=== PATIENT | female | born 1950 | race Caucasian/White ===

== ENCOUNTER 2022-02-19 05:43 | Outpatient (CLI) | payer MEDICARE ==
[~2022-02-19] VITALS: Ht 157.5 cm; Wt 32.5 kg
== END 2022-02-19 12:11 | disposition home or self-care (01) ==
LOC: PREOP 05:43
PROVIDERS: ATTEND Surgery
DX: Z01.818 Encounter for other preprocedural examination (principal)

== ENCOUNTER → 2022-02-19 | Outpatient (CLI) | payer MEDICARE ==
--- NOTE | 2022-02-19 11:21 | Diagnostic Imaging Report ---
KNEE, RIGHT, 4 VIEWS OR > INDICATION: Right knee pain COMPARISON: None available. TECHNIQUE: 4 views of the right knee FINDINGS: Joint spaces are preserved. No marginal osteophyte formation. Patella is appropriately positioned within the trochlear groove. No trochlear dysplasia. No fracture, knee joint effusion or mineralized joint bodies. Normal variant flabella is present. IMPRESSION: No osseous abnormality to account for patient's right knee pain. Dictated by: Dictated on workstation # [id number]
== END ==
LOC: ORTHO 08:35
PROVIDERS: ATTEND Orthopaedic Surgery
DX: M25.561 Pain in right knee (principal)
CPT/HCPCS: 73564; G0463; 99203

== ENCOUNTER 2022-02-26 07:48 | Day surgery (SDC) | payer MEDICARE ==
[~2022-02-26] VITALS: Ht 157.5 cm; Wt 32.5 kg
[2022-02-26] VITALS (9 sets, daily range): BP systolic 109–134; BP diastolic 52–85
--- NOTE | 2022-02-26 08:05 | Progress Note-Pre Operative ---
Pre-Operative Progress Note Date of Available H&P: Feb 11, 2022 Date H&P Reviewed: Feb 26, 2022 Time H&P Reviewed: 08:05 History & Physical: H&P Reviewed, Patient Examed, No changes noted Pre-Operative Diagnosis: subcutaneous abdominal wall mass HERON GERONIMO DO Feb 26, 2022 08:05
[2022-02-26] MEDS ORDERED: ceFAZolin INJECTION 2,000 MG in NS (IVPB) 50 ML IV ONE (08:15)
[2022-02-26] MEDS ORDERED: LACTATED RINGERS 1,000 ML IV PRN (08:15)
[2022-02-26] MEDS ORDERED: proPOfol 200 MG/20 ML (DIPRIVAN) VIAL IV ONE (09:21)
[2022-02-26] MEDS ORDERED: fentaNYL INJ 100 MCG/2 ML AMP ONE (09:22)
[2022-02-26] MEDS ORDERED: MIDAZOLAM 2 MG/2 ML (VERSED) VIAL ONE (09:22)
[2022-02-26] MEDS ORDERED: LIDOCAINE/EPI 2% 1:200,00 (XYLOCAINE) 20 ML VIAL ONE (09:53)
[2022-02-26] MEDS ORDERED: PHENYLEPHRINE 100 MCG/ML 10 ML (ANESTHESIA) SYR ONE (09:58)
[2022-02-26] MEDS ORDERED: SEVOFLURANE (ULTANE) 15 ML INHAL SOLN ONE (09:58)
[2022-02-26] MEDS ORDERED: ONDANSETRON 4 MG/2 ML (SDV) Z0FRAN ONE (09:58)
--- NOTE | 2022-02-26 10:20 | Discharge Inst-Simple/Standard ---
Discharge Inst-Standard Patient Instructions/Follow Up Plan of Care/Instructions/FU: 2 weeks Vonnie Activity as Tolerated: No Discharge Diet: Regular Diet Other Inst to Patient Follow up Appt: Make appointment for 2 week. Instructions: No strenuous activity. May shower in 24 hours, no tub bath or soaking. Use incentive spirometer at home as directed. No Smoking Skin/Wound Care: You have special glue over your incision that will fall off on it's own. Symptoms to Report: Appetite Changes, Extremity Discoloration, Numbness/Tingling, Swelling Increased, Bleeding Excessive, Eyesight Changes, Pain Increased, Urine Color Change, Constipation(Persistent), Fever over 101 degree F, Pain/Pressure in ches t, Urinating Difficulty, Cough Up/Vomit Blood, Heart Beat Irreg/Pounding, Pain/Pressure in jaw, Vaginal Bleeding Increase, Cramps in feet or legs, Lightheadedness, Pain/Pressure in shoulder, Diarrhea(Persistent), Memory Changes Suddenly, Questions/Concerns, Weight gain consecutive days, Dizziness/Fainting, Nausea/Vomiting, Shortness of Breath, Weight gain over 2 pounds If questions or concerns contact your physician Or seek help at emergency department. HERON GERONIMO DO Feb 26, 2022 10:19
--- NOTE | 2022-02-26 14:44 | OPERATIVE REPORT ---
DATE OF SERVICE: 02/26/2022 PREOPERATIVE DIAGNOSIS: Subcutaneous abdominal wall mass. POSTOPERATIVE DIAGNOSIS: Subcutaneous abdominal wall mass. PROCEDURE: Excision of subcutaneous abdominal wall mass, 6 x 3 x 2.3 cm. SURGEON: Heron Shankar DO ANESTHESIA: General. ESTIMATED BLOOD LOSS: Minimal. COMPLICATIONS: None. INDICATIONS: The patient is a 71-year-old female with abdominal wall mass, likely an infected cyst. She understands risks and benefits of procedure and wishes to proceed. Consent was signed in the chart. DESCRIPTION OF PROCEDURE: The patient was taken to the operating suite, prepped and draped in sterile fashion. Timeout was performed. Local anesthetic was infiltrated around the area. A 15 blade scalpel was used to make a skin incision measuring 6 x 3 cm. Skin and subcutaneous tissue were removed with cautery achieving hemostasis. Overall, dimensions 6 x 3 x 2.3 cm. Hemostasis was achieved. Subcutaneous tissues were then reapproximated using 3-0 Vicryl. Skin was then closed with Skin Affix after it was washed and dried. The patient tolerated the procedure well without any complications. She was taken to recovery room in stable condition. She will follow up in 2 weeks. Any issues before that be seen at that time. Job ID: [id number] DocumentID: [id number] Dictated Date: 02/26/2022 10:25:28 Customer Operations Representative Date: 02/26/2022 14:43:48 Dictated By: HERON SHANKAR DO
--- NOTE | 2022-03-05 12:47 | Anesthesia-General Post-Op ---
General Significant Intra-Op Events Notes late entry 02/26/22@1100 Patient Condition Mental Status/LOC: Same as Preop Cardiovascular: Satisfactory Nausea/Vomiting: Absent Respiratory: Satisfactory Pain: Controlled Complications: Absent Post Op Complications Complications None Follow Up Care/Instructions Patient Instructions None needed. Anesthesia/Patient Condition Patient Condition Patient is doing well, no complaints, stable vital signs, no apparent adverse anesthesia problems. No complications reported per nursing. QUIQUE COATS CRNA Mar 05, 2022 12:47
== END 2022-02-26 12:20 | disposition home or self-care (01) ==
LOC: SDC 07:48
PROVIDERS: ATTEND Surgery
DX: C44.529 Squamous cell carcinoma of skin of other part of trunk (principal); F17.210 Nicotine dependence, cigarettes, uncomplicated
CPT/HCPCS: 87081

== ENCOUNTER → 2022-03-12 | Outpatient (CLI) | payer MEDICARE ==
[~2022-03-12] MED LIST: CATHETER FLUSH 10 ML SYR IV PRN; HOLD METFORMIN - RECEIVED CONTRAST 20 ML VIAL IV SCH; IOHEXOL 350 MG/ML 100 ML (OMNIPAQUE 350) VIAL IV ONE; NS 100 ML (IVPB) BAG IV ONE
[2022-03-12 10:56] LABS: CREATININE SERUM 0.84 MG/DL (0.60-1.30)
--- NOTE | 2022-03-12 12:37 | Diagnostic Imaging Report ---
PROCEDURE: CT chest, abdomen, and pelvis with contrast. TECHNIQUE: Multiple contiguous axial images were obtained through the chest, abdomen, and pelvis after the administration of intravenous contrast. Auto Exposure Controls were utilized during the CT exam to meet ALARA standards for radiation dose reduction. INDICATION: Primary neoplasm and metastatic squamous cell carcinoma. COMPARISON: No prior studies are available for comparison. CT CHEST: No axillary lymphadenopathy is detected. No mediastinal or hilar lymphadenopathy is detected. No pericardial or pleural fluid is identified. Parenchymal evaluation does show bilateral apical pleural-parenchymal scarring. There are emphysematous changes throughout both lungs. There is a spiculated partially cavitary mass in the posterior right upper lobe measuring 2.6 x 2.0 cm. No other pulmonary masses are identified. CT ABDOMEN AND PELVIS: The liver and gallbladder are unremarkable. There is a right lobe calcification but no noncalcified mass is detected. Pancreas and spleen are unremarkable. No adrenal mass is detected. Kidneys are unremarkable. Aorta is heavily calcified but nonaneurysmal. The small and large bowel loops are normal caliber. No obstruction. No free fluid or fluid collection. Bladder is decompressed. No definite abdominal or pelvic lymphadenopathy is seen. Bony structures demonstrate a lytic destructive appearing lesion involving the right acetabulum posterior wall and medial wall with some extraosseous soft tissue tumor extension. This extends to the right ischium. IMPRESSION: 1. Spiculated right upper lobe mass concerning for primary lung malignancy. In addition, there is a destructive lytic lesion of the right acetabulum and right ischium with extraosseous tumor extension. No other bony destructive lesions are seen. Dictated by: Dictated on workstation # [id number]
== END ==
LOC: RAD 10:14
PROVIDERS: ATTEND Nurse Practitioner
DX: C80.1 Malignant (primary) neoplasm, unspecified (principal)
CPT/HCPCS: 36415; 71260; 74177; 82565; 84520

== ENCOUNTER 2022-03-25 07:13 | Outpatient (CLI) | payer MEDICARE ==
[2022-03-25] VITALS (11 sets, daily range): BP systolic 100–118; BP diastolic 60–81
[2022-03-25 07:52] LABS: HEMATOCRIT 39 % (35-52); HEMOGLOBIN 13.1 g/dL (11.5-16.0); MEAN CORPUSCULAR HEMOGLOBIN 31 pg (25-34); MEAN CORPUSCULAR HGB CONC 34 g/dL (32-36); MEAN CORPUSCULAR VOLUME 92 fL (80-99); PLATELET COUNT 408 10^3/uL (130-400); WHITE BLOOD COUNT 10.2 10^3/uL (4.3-11.0)
[2022-03-25] MEDS ORDERED: NS IV 1000 ML 1,000 ML IV STA (08:50)
[2022-03-25] MEDS ORDERED: MIDAZOLAM 2 MG/2 ML (VERSED) VIAL IVP ONE (09:00)
[2022-03-25] MEDS ORDERED: LIDOCAINE 1% INJ 10 ML VIAL INJ ONE (09:00)
[2022-03-25] MEDS ORDERED: fentaNYL INJ 100 MCG/2 ML AMP IVP ONE (09:00)
--- NOTE | 2022-03-25 10:03 | Pre-Op Note & Conscious Sedat ---
Pre-Operative Progress Note Date of Available H&P: Mar 25, 2022 Date H&P Reviewed: Mar 25, 2022 Time H&P Reviewed: 09:00 Pre-Op Diagnosis: hip lytic lesion Conscious Sedation Pre-Proced Time 09:00 ASA Score 2 For ASA 3 and 4: Consider anesthesia and medical clearance. Also, for patients with a history of failed moderate sedation consider anesthesia. Airway Lungs Heart ASA score ASA 1: a normal healthy patient ASA 2: a patient with a mild systemic disease (mid diabetes, controlled hypertension, obesity ASA 3: a patient with a severe systemic disease that limits activity (angina, COPD, prior Myocardial infarction) ASA 4: a patient with an incapacitating disease that is a constant threat to life (CHF, renal failure) ASA 5: a moribund patient not expected to survive 24 hrs. (ruptured aneurysm) ASA 6: a declared brain- patient whose organs are being harvested. For emergent operations, add the letter E after the classification Mallampati Classification Grade 2 Sedation Plan Analgesia, Amnesia, Plan communicated to team members, Discussed options with patient/fam, Discussed risks with patient/fam The patient is an appropriate candidate to undergo the planned procedure, sedation, and anesthesia. The patient immediately re-assessed prior to indication. GRISELDA MARCELO MD Mar 25, 2022 10:03
--- NOTE | 2022-03-25 10:32 | Diagnostic Imaging Report ---
INDICATION: Right acetabular lytic lesion. Patient presents for CT-guided biopsy. TECHNIQUE: All CT scans use one or more of the following dose optimizing techniques: automated exposure control, MA and/or KvP adjustment based on patient size and exam type or iterative reconstruction. DETAILS OF THE PROCEDURE: The patient was brought to the CT suite and placed on the table in the prone position. Axial imaging through the pelvis was performed to evaluate for an appropriate entry site. The right posterior hip region was prepped and draped in the usual sterile fashion. The procedure was performed utilizing conscious sedation with Radiology nursing and constant patient monitoring. The patient was given a total of 50 mg of fentanyl intravenously. The total procedure time was approximately 6 minutes. A small amount of 1% lidocaine was utilized for local anesthesia. An 18-gauge coaxial Temno needle was advanced from a posterior approach and placed into the lytic lesion involving the posterior wall of the acetabulum on the right. Four core biopsies were obtained. The needle was removed and hemostasis was obtained using manual compression. The patient tolerated the procedure well and left the Department in stable condition. IMPRESSION: Successful CT-guided core biopsy of the lytic destructive lesion involving the right acetabulum utilizing conscious sedation. Pathology results are currently pending. Dictated by: Dictated on workstation # [id number]
== END 2022-03-25 12:00 ==
LOC: SDC 07:13
PROVIDERS: ATTEND Surgery
DX: M25.851 Other specified joint disorders, right hip (principal)
CPT/HCPCS: 36415; 77012; 85027; 85610; 85730

== ENCOUNTER → 2022-04-03 | Outpatient (CLI) | payer MEDICARE ==
[~2022-04-03] MED LIST changes: -CATHETER FLUSH 10 ML SYR IV PRN; +GADOTERATE 0.5 MMOL/ML (CLARISCAN) 20 ML VIAL IV ONE; -HOLD METFORMIN - RECEIVED CONTRAST 20 ML VIAL IV SCH; -IOHEXOL 350 MG/ML 100 ML (OMNIPAQUE 350) VIAL IV ONE; -NS 100 ML (IVPB) BAG IV ONE
--- NOTE | 2022-04-03 13:13 | Diagnostic Imaging Report ---
PROCEDURE: MR imaging of the brain with and without contrast. TECHNIQUE: Multiplanar, multisequence MR imaging of the brain was performed with and without contrast. INDICATION: Non-small cell lung cancer. COMPARISON: None. FINDINGS: Moderate generalized parenchymal volume loss. Mild nonspecific T2 hyperintensities in the supratentorial white matter compatible with chronic small vessel ischemic change. No abnormal intracranial enhancement. No restricted water diffusion. No hemosiderin deposition or evidence of intracranial hemorrhage. Normal morphology including the major midline structures, sella, posterior fossa and cerebellar pontine angle. Normal intracranial flow voids. No hydrocephalus or extra-axial fluid collections. The orbits are negative. Paranasal sinuses and mastoids are clear. Normal bone marrow signal. IMPRESSION: Age-appropriate MRI of the brain. No acute findings. No evidence of intracranial metastases. Dictated by: Dictated on workstation # [id number]
--- NOTE | 2022-04-03 18:27 | Diagnostic Imaging Report ---
INDICATION: 72-year-old female, [id number] lung cancer. TECHNIQUE: The patient was administered 26.10 mCi technetium 99m MDP intravenously. After delay, anterior and posterior whole-body planar images are obtained. CORRELATION STUDY: CT chest, abdomen, and pelvis from 03/12/2022. FINDINGS: Asymmetric foci of uptake over the right frontal bone in the calvarium. There is also asymmetric uptake over the what appears to be likely right infraorbital region. Very slight asymmetric uptake at the superior left T11 vertebral body. The cervical, thoracic and lumbar spine is otherwise unremarkable. Ribs, sternum, bilateral shoulder girdles are unremarkable. There is asymmetric uptake at the right acetabulum corresponding to the known destructive lesion. Asymmetric uptake at the right intertrochanteric aspect of the proximal femur. Additionally, there is more cortical-based uptake about the proximal left femoral shaft which includes both medial and lateral aspects including the region of the lesser trochanter. IMPRESSION: 1. Large area of abnormal uptake at the right acetabular region corresponding to the known destructive mass. 2. Additional foci at the proximal right femur at the intertrochanteric aspect along the left proximal femoral shaft. Also, suspicious for metastatic disease. 3. Small foci posteriorly at T11. While could potentially be degenerative, possibility of very small metastasis is not excluded. 4. Asymmetric uptake over the right bony calvarium. This is asymmetric, concerning for metastasis. Dictated by: Dictated on workstation # [id number]
== END ==
LOC: CARD 11:41
PROVIDERS: ATTEND Internal Medicine Hematology & Oncology
DX: C34.90 Malignant neoplasm of unspecified part of unspecified bronchus or lung (principal)
CPT/HCPCS: 70553; 78306; A9503

== ENCOUNTER → 2022-04-13 | Outpatient (CLI) | payer MEDICARE ==
--- NOTE | 2022-04-13 17:27 | Diagnostic Imaging Report ---
INDICATION: Left hip pain Two views of the left hip showed no fracture or dislocation. Joint spaces are well-maintained. IMPRESSION: Unremarkable left hip. Dictated by: Dictated on workstation # [id number]
--- NOTE | 2022-04-13 17:45 | Diagnostic Imaging Report ---
INDICATION: Bilateral leg pain AP and lateral radiographs of the femurs were obtained and compared with the bone scan dated 04/03/2022. There are no corresponding abnormalities seen in the proximal femurs on x-ray with comparison to the bone scan. IMPRESSION: No osteolytic or osteoblastic lesions seen in either femur. There does appear to be a nondisplaced pathologic fracture of the right inferior ischiopubic ramus. Dictated by: Dictated on workstation # [id number]
== END ==
LOC: RAD 13:13
PROVIDERS: ATTEND Internal Medicine Hematology & Oncology
DX: M25.552 Pain in left hip (principal); M79.605 Pain in left leg; M79.604 Pain in right leg; C34.90 Malignant neoplasm of unspecified part of unspecified bronchus or lung
CPT/HCPCS: 73502

== ENCOUNTER 2022-04-16 05:38 | Outpatient (CLI) | payer MEDICARE ==
[~2022-04-16] VITALS: Ht 154.9 cm; Wt 32.7 kg
[2022-04-16] MEDS ORDERED: ACET325T38 PO (13:35)
== END 2022-04-16 13:41 | disposition home or self-care (01) ==
LOC: PREOP 05:38
PROVIDERS: ATTEND Surgery
DX: Z01.818 Encounter for other preprocedural examination (principal)

== ENCOUNTER → 2022-04-20 | Outpatient (RCR) | payer MEDICARE ==
[2022-04-03 11:47] LABS: BASOPHILS % (AUTO) 0 % (0-10); EOSINOPHILS # (AUTO) 0.1 10^3/uL (0.0-0.3); EOSINOPHILS % (AUTO) 1 % (0-10); HEMATOCRIT 39 % (35-52); HEMOGLOBIN 12.9 g/dL (11.5-16.0); LYMPHOCYTES # (AUTO) 2.9 10^3/uL (1.0-4.0); LYMPHOCYTES % (AUTO) 29 % (12-44); MEAN CORPUSCULAR HEMOGLOBIN 31 pg (25-34); MEAN CORPUSCULAR HGB CONC 33 g/dL (32-36); MEAN CORPUSCULAR VOLUME 93 fL (80-99); MONOCYTES # (AUTO) 0.8 10^3/uL (0.0-1.0); MONOCYTES % (AUTO) 8 % (0-12); NEUTROPHILS # (AUTO) 6.4 10^3/uL (1.8-7.8); NEUTROPHILS % (AUTO) 62 % (42-75); PLATELET COUNT 475 10^3/uL (130-400); WHITE BLOOD COUNT 10.3 10^3/uL (4.3-11.0)
[2022-04-03 12:08] LABS: ALBUMIN 3.8 GM/DL (3.2-4.5); BILIRUBIN,TOTAL 0.2 MG/DL (0.1-1.0); CALCIUM 9.2 MG/DL (8.5-10.1); CREATININE SERUM 0.71 MG/DL (0.60-1.30); POTASSIUM 3.7 MMOL/L (3.6-5.0); TOTAL PROTEIN 7.1 GM/DL (6.4-8.2)
[~2022-04-20] VITALS: Ht 154.9 cm; Wt 30.4 kg
[~2022-04-20] MED LIST changes: +ACET325T38 PO; +CARBOPLATIN IV SCH; +D5W IV SCH; +FAMOTIDINE 20MG/2ML IV (PEPCID) IV PRN; +FOSAPREPITANT (CANCER CENTER) 150 MG in NS (IVPB) CANCER CENTER ONLY 150 ML IV SCH; -GADOTERATE 0.5 MMOL/ML (CLARISCAN) 20 ML VIAL IV ONE; +HEParin (CENTRAL IV FLUSH) 500 UNIT/5 ML SYR IV PRN; +NORMAL SALINE IV SCH; +NS IV 1000 ML (CANCER CTR) IV SCH; +PACLITAXEL IV SCH; +PALONOSETRON HCL 0.25 MG, dexAMETHasone INJECTION 10 MG in NS (IVPB) 50 ML IV SCH; +PEMBROLIZUMAB 200 MG in NS (IVPB) 50 ML IV SCH; +diphenhydrAMINE 25 MG TAB (BENADRYL) PO SCH
== END | disposition home or self-care (01) ==
LOC: ONC 03-31 09:41
PROVIDERS: ATTEND Internal Medicine Hematology & Oncology
DX: C34.90 Malignant neoplasm of unspecified part of unspecified bronchus or lung (principal)
CPT/HCPCS: 80053; 85025; 99204; 99205; 99213

== ENCOUNTER 2022-04-23 08:56 | Day surgery (SDC) | payer MEDICARE ==
[2022-04-23] VITALS (7 sets, daily range): BP systolic 114–153; BP diastolic 65–77
[~2022-04-23] VITALS: Ht 154 cm; Wt 32.7 kg
[~2022-04-23 08:56] MED LIST changes: -CARBOPLATIN IV SCH; -D5W IV SCH; -FAMOTIDINE 20MG/2ML IV (PEPCID) IV PRN; -FOSAPREPITANT (CANCER CENTER) 150 MG in NS (IVPB) CANCER CENTER ONLY 150 ML IV SCH; -HEParin (CENTRAL IV FLUSH) 500 UNIT/5 ML SYR IV PRN; -NORMAL SALINE IV SCH; -NS IV 1000 ML (CANCER CTR) IV SCH; -PACLITAXEL IV SCH; -PALONOSETRON HCL 0.25 MG, dexAMETHasone INJECTION 10 MG in NS (IVPB) 50 ML IV SCH; -PEMBROLIZUMAB 200 MG in NS (IVPB) 50 ML IV SCH; -diphenhydrAMINE 25 MG TAB (BENADRYL) PO SCH
[2022-04-23] MEDS ORDERED: LACTATED RINGERS 1,000 ML IV PRN (09:15)
--- NOTE | 2022-04-23 12:02 | Progress Note-Pre Operative ---
Pre-Operative Progress Note Date of Available H&P: Apr 13, 2022 Date H&P Reviewed: Apr 23, 2022 Time H&P Reviewed: 12:02 History & Physical: H&P Reviewed, Patient Examed, No changes noted Pre-Operative Diagnosis: lung cancer HERON GERONIMO DO Apr 23, 2022 12:02
[2022-04-23] MEDS ORDERED: MIDAZOLAM 2 MG/2 ML (VERSED) VIAL ONE (12:26)
[2022-04-23] MEDS ORDERED: fentaNYL INJ 100 MCG/2 ML AMP ONE (12:26)
[2022-04-23] MEDS ORDERED: PROPOFOL INJECTION 50 ML IV ONE (12:26)
[2022-04-23] MEDS ORDERED: HEParin (CENTRAL IV FLUSH) 500 UNIT/5 ML SYR ONE (12:31)
[2022-04-23] MEDS ORDERED: 0.9% SODIUM CHLORIDE PF INJ 20 ML VIAL ONE (12:31)
[2022-04-23] MEDS ORDERED: BUP/EPI 0.5% 1:200,000 (MARCAINE) 10ML VIAL IJ ONE (12:31)
[2022-04-23] MEDS ORDERED: ceFAZolin INJECTION 1,000 MG ONE (13:26)
[2022-04-23] MEDS ORDERED: ceFAZolin INJECTION 1,000 MG in NS (IVPB) 50 ML IV ONE (13:45)
--- NOTE | 2022-04-23 14:08 | Anesthesia-General Post-Op ---
MAC Patient Condition Mental Status/LOC: Same as Preop Cardiovascular: Satisfactory Nausea/Vomiting: Absent Respiratory: Satisfactory Pain: Controlled Complications: Absent Post Op Complications Complications None Follow Up Care/Instructions Patient Instructions None needed. Anesthesiology Discharge Order Discharge Order Patient is doing well, no complaints, stable vital signs, no apparent adverse anesthesia problems. No complications reported per nursing. HORTENCIA LOPEZ CRNA Apr 23, 2022 14:08
[2022-04-23] MEDS ORDERED: ONDANSETRON 4 MG/2 ML (SDV) Z0FRAN IVP PRN (14:15)
[2022-04-23] MEDS ORDERED: morphine INJ 10 MG/ML 1ML (SYR OR VIAL) IVP ONE (14:15)
--- NOTE | 2022-04-23 14:48 | Diagnostic Imaging Report ---
Indication: Postop Port-A-Cath placement Frontal chest obtained 0228 p.m. There is no prior study for comparison There is hyperinflation compatible with COPD. There is no focal infiltrate or pneumothorax or pleural fluid. Right-sided Port-A-Cath is seen with catheter into the right internal jugular vein and catheter tip overlying the mid SVC. Heart is normal in size. There is some left apical infiltrate versus scarring. IMPRESSION: COPD changes. New right-sided Port-A-Cath in place with no pneumothorax or pleural fluid following device placement. Dictated by: Dictated on workstation # [id number]
--- NOTE | 2022-04-23 15:18 | Progress Note-Post Operative ---
Post-Operative Progess Note Surgeon (s)/[employer]orer [employer] Or Leak [employer] (s) Surgeon HERON GERONIMO DO [employer] Leak [employer]: N/A Pre-Operative Diagnosis lung cancer Post-Operative Diagnosis Same Procedure & Operative Findings Date of Procedure 04/23/22 Procedure Performed/Findings PROCEDURE: Right internal jugular port placement using ultrasound guidance. COMPLICATIONS: None. INDICATIONS: The patient is a 72 year old female needing port. Patient understands the risks and benefits of port placement and wished to proceed with the procedure. Consent was signed on the chart. PROCEDURE: The patient was taken to the operating suite, was prepped and draped in the sterile fashion. A surgical pause was performed. Ultrasound was used to locate the internal jugular vein. Once located anesthetic was infiltrated above it. Using micro-access kit, the right internal vein was accessed. Dark nonpulsatile blood was withdrawn. The wire was inserted. Fluoroscopy assured proper placement. The needle was removed. The micro-access dilator was advanced over the wire and the wire was removed. The regular wire was inserted and fluoroscopy assured proper placement. The wire was then secured. Local anesthetic was used to anesthetize from the neck for tunneling down to the right chest and for pocket creation. A 15 blade scalpel was used to make an incision over the right chest. Cautery was used to dissect down to the pectoral fascia. A pocket was created with blunt dissection. The dilator sheath was then advanced over the wire under fluoroscopy and the dilator and wire were removed. The Groshong catheter was inserted through the sheath and the sheath was then removed. The Groshong wire was removed. The catheter was then tunneled to the right chest pocket. Fluoroscopy was used to cut to length and this was then attached to the port which was then placed within the pocket secured with 3-0 prolene. The port was then accessed without difficulty. It was then flushed with saline and then heparin. The subcutaneous tissues were then reapproximated using 3-0 Vicryl. The areas were then washed and dried. Skin Affix was placed over incision. The insertion point of the neck Skin Affix was placed over the incision. The patient tolerated the procedure well without complication and was taken to recovery room in stable condition. Chest x-ray is pending. Anesthesia Type MAC with local Estimated Blood Loss Estimated blood loss (mL): minimal Specimens/Packing Specimens Removed N/A HERON GERONIMO DO Apr 23, 2022 15:18
--- NOTE | 2022-04-23 17:54 | Diagnostic Imaging Report ---
INDICATION: Port-A-Cath placement. EXAMINATION: Intraoperative fluoroscopy view was obtained during Port-A-Cath placement in surgery. Single view obtained, 20.6 seconds of fluoroscopy time was used. Intraoperative view demonstrates Port-A-Cath over the right chest with catheter in the right internal jugular vein and catheter tip in the low SVC. The study is otherwise limited. IMPRESSION: Intraoperative view demonstrates Port-A-Cath placement as above. Dictated by: Dictated on workstation # [id number]
== END 2022-04-23 15:03 | disposition home or self-care (01) ==
LOC: SDC 08:56
PROVIDERS: ATTEND Surgery
DX: C34.90 Malignant neoplasm of unspecified part of unspecified bronchus or lung (principal); I87.2 Venous insufficiency (chronic) (peripheral); F17.210 Nicotine dependence, cigarettes, uncomplicated
CPT/HCPCS: 36561; 71045; 76000; 87081; C1788

== ENCOUNTER 2022-05-18 08:50 | Outpatient (RCR) | payer MEDICARE, OTHER ==
[2022-04-27 09:43] LABS: BASOPHILS % (AUTO) 0 % (0-10); EOSINOPHILS # (AUTO) 0.1 10^3/uL (0.0-0.3); EOSINOPHILS % (AUTO) 0 % (0-10); HEMATOCRIT 36 % (35-52); HEMOGLOBIN 11.8 g/dL (11.5-16.0); LYMPHOCYTES # (AUTO) 2.5 10^3/uL (1.0-4.0); LYMPHOCYTES % (AUTO) 20 % (12-44); MEAN CORPUSCULAR HEMOGLOBIN 30 pg (25-34); MEAN CORPUSCULAR HGB CONC 33 g/dL (32-36); MEAN CORPUSCULAR VOLUME 91 fL (80-99); MEAN PLATELET VOLUME 9.4 fL (9.0-12.2); MONOCYTES % (AUTO) 8 % (0-12); NEUTROPHILS # (AUTO) 8.9 10^3/uL (1.8-7.8); NEUTROPHILS % (AUTO) 71 % (42-75); PLATELET COUNT 390 10^3/uL (130-400); WHITE BLOOD COUNT 12.5 10^3/uL (4.3-11.0)
[2022-04-27 09:58] LABS: ALBUMIN 3.4 GM/DL (3.2-4.5); BILIRUBIN,TOTAL 0.2 MG/DL (0.1-1.0); CREATININE SERUM 0.66 MG/DL (0.60-1.30); POTASSIUM 3.2 MMOL/L (3.6-5.0); TOTAL PROTEIN 6.4 GM/DL (6.4-8.2)
[~2022-05-18 08:50] MED LIST changes: +CARBOPLATIN IV SCH; +D5W IV SCH; +FAMOTIDINE 20MG/2ML IV (PEPCID) IV PRN; +FOSAPREPITANT (CANCER CENTER) 150 MG in NS (IVPB) CANCER CENTER ONLY 150 ML IV SCH; +HEParin (CENTRAL IV FLUSH) 500 UNIT/5 ML SYR IV PRN; +NORMAL SALINE IV SCH; +NS IV 1000 ML (CANCER CTR) IV SCH; +PACLITAXEL IV SCH; +PALONOSETRON HCL 0.25 MG, dexAMETHasone INJECTION 10 MG in NS (IVPB) 50 ML IV SCH; +PEMBROLIZUMAB 200 MG in NS (IVPB) 50 ML IV SCH; +diphenhydrAMINE 25 MG TAB (BENADRYL) PO SCH
[2022-05-18 09:20] LABS: BASOPHILS # (AUTO) 0.1 10^3/uL (0.0-0.1); BASOPHILS % (AUTO) 1 % (0-10); EOSINOPHILS # (AUTO) 0.1 10^3/uL (0.0-0.3); EOSINOPHILS % (AUTO) 0 % (0-10); HEMATOCRIT 30 % (35-52); HEMOGLOBIN 9.9 g/dL (11.5-16.0); LYMPHOCYTES # (AUTO) 2.8 10^3/uL (1.0-4.0); LYMPHOCYTES % (AUTO) 20 % (12-44); MEAN CORPUSCULAR HEMOGLOBIN 31 pg (25-34); MEAN CORPUSCULAR HGB CONC 33 g/dL (32-36); MEAN CORPUSCULAR VOLUME 95 fL (80-99); MEAN PLATELET VOLUME 8.8 fL (9.0-12.2); MONOCYTES # (AUTO) 0.9 10^3/uL (0.0-1.0); MONOCYTES % (AUTO) 7 % (0-12); NEUTROPHILS # (AUTO) 9.4 10^3/uL (1.8-7.8); NEUTROPHILS % (AUTO) 69 % (42-75); PLATELET COUNT 425 10^3/uL (130-400); WHITE BLOOD COUNT 13.6 10^3/uL (4.3-11.0)
[2022-05-18 09:41] LABS: BILIRUBIN,TOTAL 0.2 MG/DL (0.1-1.0); CALCIUM 8.4 MG/DL (8.5-10.1); CREATININE SERUM 0.58 MG/DL (0.60-1.30); POTASSIUM 2.9 MMOL/L (3.6-5.0)
== END 2022-05-20 | disposition home or self-care (01) ==
LOC: ONC 08:50
PROVIDERS: ATTEND Internal Medicine Hematology & Oncology
DX: Z51.0 Encounter for antineoplastic radiation therapy (principal); Z51.11 Encounter for antineoplastic chemotherapy; C34.90 Malignant neoplasm of unspecified part of unspecified bronchus or lung; I87.2 Venous insufficiency (chronic) (peripheral)
CPT/HCPCS: 71045; 76000; 77290; 77295; 77300; 77334 ×2; 77470; 87081; C1788; 36591; 77336; 77417; 80053; 85025; 96367; 96375; 96413; 96415; 96417; 99212; 99213

== ENCOUNTER 2022-06-16 12:58 | Outpatient (RCR) | payer MEDICARE, OTHER ==
[2022-05-25 13:22] LABS: BASOPHILS # (AUTO) 0.1 10^3/uL (0.0-0.1); BASOPHILS % (AUTO) 1 % (0-10); EOSINOPHILS # (AUTO) 0.1 10^3/uL (0.0-0.3); EOSINOPHILS % (AUTO) 1 % (0-10); HEMATOCRIT 30 % (35-52); HEMOGLOBIN 9.9 g/dL (11.5-16.0); LYMPHOCYTES # (AUTO) 2.5 10^3/uL (1.0-4.0); LYMPHOCYTES % (AUTO) 26 % (12-44); MEAN CORPUSCULAR HEMOGLOBIN 31 pg (25-34); MEAN CORPUSCULAR HGB CONC 33 g/dL (32-36); MEAN CORPUSCULAR VOLUME 94 fL (80-99); MEAN PLATELET VOLUME 9.7 fL (9.0-12.2); MONOCYTES # (AUTO) 0.4 10^3/uL (0.0-1.0); MONOCYTES % (AUTO) 4 % (0-12); NEUTROPHILS # (AUTO) 6.3 10^3/uL (1.8-7.8); NEUTROPHILS % (AUTO) 67 % (42-75); PLATELET COUNT 263 10^3/uL (130-400); WHITE BLOOD COUNT 9.4 10^3/uL (4.3-11.0)
[2022-06-01 12:51] LABS: BASOPHILS % (AUTO) 1 % (0-10); EOSINOPHILS # (AUTO) 0.3 10^3/uL (0.0-0.3); EOSINOPHILS % (AUTO) 5 % (0-10); HEMATOCRIT 33 % (35-52); HEMOGLOBIN 10.5 g/dL (11.5-16.0); LYMPHOCYTES % (AUTO) 37 % (12-44); MEAN CORPUSCULAR HEMOGLOBIN 31 pg (25-34); MEAN CORPUSCULAR HGB CONC 32 g/dL (32-36); MEAN CORPUSCULAR VOLUME 97 fL (80-99); MEAN PLATELET VOLUME 9.2 fL (9.0-12.2); MONOCYTES # (AUTO) 0.9 10^3/uL (0.0-1.0); MONOCYTES % (AUTO) 16 % (0-12); NEUTROPHILS # (AUTO) 2.2 10^3/uL (1.8-7.8); NEUTROPHILS % (AUTO) 40 % (42-75); PLATELET COUNT 254 10^3/uL (130-400); WHITE BLOOD COUNT 5.4 10^3/uL (4.3-11.0)
[2022-06-08 09:30] LABS: BASOPHILS # (AUTO) 0.1 10^3/uL (0.0-0.1); BASOPHILS % (AUTO) 1 % (0-10); EOSINOPHILS # (AUTO) 0.3 10^3/uL (0.0-0.3); EOSINOPHILS % (AUTO) 3 % (0-10); HEMATOCRIT 34 % (35-52); LYMPHOCYTES # (AUTO) 2.9 10^3/uL (1.0-4.0); LYMPHOCYTES % (AUTO) 28 % (12-44); MEAN CORPUSCULAR HEMOGLOBIN 32 pg (25-34); MEAN CORPUSCULAR HGB CONC 33 g/dL (32-36); MEAN CORPUSCULAR VOLUME 97 fL (80-99); MONOCYTES % (AUTO) 10 % (0-12); NEUTROPHILS % (AUTO) 58 % (42-75); PLATELET COUNT 258 10^3/uL (130-400); WHITE BLOOD COUNT 10.3 10^3/uL (4.3-11.0)
[2022-06-08 09:50] LABS: ALBUMIN 3.4 GM/DL (3.2-4.5); BILIRUBIN,TOTAL 0.3 MG/DL (0.1-1.0); CALCIUM 8.6 MG/DL (8.5-10.1); CREATININE SERUM 0.67 MG/DL (0.60-1.30); TOTAL PROTEIN 6.4 GM/DL (6.4-8.2)
[2022-06-16 13:11] LABS: BASOPHILS % (AUTO) 1 % (0-10); EOSINOPHILS # (AUTO) 0.3 10^3/uL (0.0-0.3); EOSINOPHILS % (AUTO) 4 % (0-10); HEMATOCRIT 29 % (35-52); HEMOGLOBIN 9.7 g/dL (11.5-16.0); LYMPHOCYTES # (AUTO) 1.6 10^3/uL (1.0-4.0); LYMPHOCYTES % (AUTO) 26 % (12-44); MEAN CORPUSCULAR HEMOGLOBIN 32 pg (25-34); MEAN CORPUSCULAR HGB CONC 33 g/dL (32-36); MEAN CORPUSCULAR VOLUME 96 fL (80-99); MEAN PLATELET VOLUME 10.4 fL (9.0-12.2); MONOCYTES # (AUTO) 0.4 10^3/uL (0.0-1.0); MONOCYTES % (AUTO) 6 % (0-12); NEUTROPHILS # (AUTO) 3.8 10^3/uL (1.8-7.8); NEUTROPHILS % (AUTO) 63 % (42-75); PLATELET COUNT 169 10^3/uL (130-400)
[2022-06-16 13:37] LABS: ALBUMIN 3.7 GM/DL (3.2-4.5); BILIRUBIN,TOTAL 0.2 MG/DL (0.1-1.0); CREATININE SERUM 0.64 MG/DL (0.60-1.30); POTASSIUM 3.4 MMOL/L (3.6-5.0); TOTAL PROTEIN 6.6 GM/DL (6.4-8.2)
== END 2022-06-20 | disposition home or self-care (01) ==
LOC: ONC 12:58
PROVIDERS: ATTEND Internal Medicine Hematology & Oncology
DX: Z51.11 Encounter for antineoplastic chemotherapy (principal); C34.90 Malignant neoplasm of unspecified part of unspecified bronchus or lung; I87.2 Venous insufficiency (chronic) (peripheral); E87.6 Hypokalemia
CPT/HCPCS: 36415; 36591; 80053; 85025; 96367; 96375; 96413; 96415; 96417

== ENCOUNTER 2022-07-01 09:56 | Outpatient (RCR) | payer MEDICARE, OTHER ==
[2022-06-23 09:09] LABS: BASOPHILS % (AUTO) 0 % (0-10); EOSINOPHILS # (AUTO) 0.2 10^3/uL (0.0-0.3); EOSINOPHILS % (AUTO) 4 % (0-10); HEMATOCRIT 30 % (35-52); HEMOGLOBIN 9.7 g/dL (11.5-16.0); LYMPHOCYTES # (AUTO) 2.4 10^3/uL (1.0-4.0); LYMPHOCYTES % (AUTO) 45 % (12-44); MEAN CORPUSCULAR HEMOGLOBIN 33 pg (25-34); MEAN CORPUSCULAR HGB CONC 33 g/dL (32-36); MEAN CORPUSCULAR VOLUME 100 fL (80-99); MEAN PLATELET VOLUME 9.6 fL (9.0-12.2); MONOCYTES % (AUTO) 19 % (0-12); NEUTROPHILS # (AUTO) 1.6 10^3/uL (1.8-7.8); NEUTROPHILS % (AUTO) 29 % (42-75); PLATELET COUNT 209 10^3/uL (130-400); WHITE BLOOD COUNT 5.4 10^3/uL (4.3-11.0)
[2022-06-23 09:27] LABS: ALANINE AMINOTRANSFERASE 10 U/L (0-55); ALBUMIN 3.4 GM/DL (3.2-4.5); ALKALINE PHOSPHATASE 81 U/L (40-136); BILIRUBIN,TOTAL < 0.1 MG/DL (0.1-1.0); BUN/CREATININE RATIO 19; CALCIUM 9.1 MG/DL (8.5-10.1); CARBON DIOXIDE 24 MMOL/L (21-32); CHLORIDE 104 MMOL/L (98-107); CREATININE SERUM 0.63 MG/DL (0.60-1.30); GFR ESTIMATED 95; GLUCOSE 87 MG/DL (70-105); POTASSIUM 3.8 MMOL/L (3.6-5.0); SODIUM 138 MMOL/L (135-145); TOTAL PROTEIN 6.3 GM/DL (6.4-8.2)
[2022-06-29 09:13] LABS: BASOPHILS % (AUTO) 0 % (0-10); EOSINOPHILS % (AUTO) 0 % (0-10); HEMATOCRIT 30 % (35-52); HEMOGLOBIN 9.9 g/dL (11.5-16.0); LYMPHOCYTES # (AUTO) 2.7 10^3/uL (1.0-4.0); LYMPHOCYTES % (AUTO) 21 % (12-44); MEAN CORPUSCULAR HEMOGLOBIN 33 pg (25-34); MEAN CORPUSCULAR HGB CONC 33 g/dL (32-36); MEAN CORPUSCULAR VOLUME 99 fL (80-99); MEAN PLATELET VOLUME 9.6 fL (9.0-12.2); MONOCYTES # (AUTO) 1.1 10^3/uL (0.0-1.0); MONOCYTES % (AUTO) 9 % (0-12); NEUTROPHILS # (AUTO) 8.9 10^3/uL (1.8-7.8); NEUTROPHILS % (AUTO) 69 % (42-75); PLATELET COUNT 328 10^3/uL (130-400); WHITE BLOOD COUNT 12.9 10^3/uL (4.3-11.0)
[2022-06-29 09:33] LABS: ALBUMIN 3.6 GM/DL (3.2-4.5); BILIRUBIN,TOTAL 0.2 MG/DL (0.1-1.0); CALCIUM 8.9 MG/DL (8.5-10.1); CREATININE SERUM 0.64 MG/DL (0.60-1.30); POTASSIUM 3.6 MMOL/L (3.6-5.0); TOTAL PROTEIN 6.3 GM/DL (6.4-8.2)
== END 2022-07-21 | disposition home or self-care (01) ==
LOC: ONC 09:56
PROVIDERS: ATTEND Internal Medicine Hematology & Oncology
DX: Z51.11 Encounter for antineoplastic chemotherapy (principal); Z45.2 Encounter for adjustment and management of vascular access device; C34.90 Malignant neoplasm of unspecified part of unspecified bronchus or lung
CPT/HCPCS: 36415; 36591; 80053; 85025; 96367; 96375; 96413; 96415; 96417; 99213

== ENCOUNTER → 2022-07-07 | Outpatient (CLI) | payer MEDICARE ==
[~2022-07-07] MED LIST changes: -CARBOPLATIN IV SCH; +CATHETER FLUSH 10 ML SYR IVP PRN; -D5W IV SCH; -FAMOTIDINE 20MG/2ML IV (PEPCID) IV PRN; -FOSAPREPITANT (CANCER CENTER) 150 MG in NS (IVPB) CANCER CENTER ONLY 150 ML IV SCH; -HEParin (CENTRAL IV FLUSH) 500 UNIT/5 ML SYR IV PRN; +HOLD METFORMIN - RECEIVED CONTRAST 20 ML VIAL IV SCH; +IOHEXOL 350 MG/ML 100 ML (OMNIPAQUE 350) VIAL IV ONE; -NORMAL SALINE IV SCH; +NS 100 ML (IVPB) BAG IV ONE; -NS IV 1000 ML (CANCER CTR) IV SCH; -PACLITAXEL IV SCH; -PALONOSETRON HCL 0.25 MG, dexAMETHasone INJECTION 10 MG in NS (IVPB) 50 ML IV SCH; -PEMBROLIZUMAB 200 MG in NS (IVPB) 50 ML IV SCH; -diphenhydrAMINE 25 MG TAB (BENADRYL) PO SCH
--- NOTE | 2022-07-07 12:09 | Diagnostic Imaging Report ---
EXAMINATION: CT chest, abdomen and pelvis with intravenous contrast. TECHNIQUE: Multiple contiguous axial images were obtained through the chest, abdomen and pelvis after the uneventful administration of intravenous contrast. All CT scans use one or more of the following dose optimizing techniques: automated exposure control, MA and/or KvP adjustment based on patient size and exam type or iterative reconstruction. HISTORY: Non-small cell lung cancer. COMPARISON: 03/12/2022 FINDINGS: There is no edema or pneumonia. No pleural effusion. No pneumothorax. The right upper lobe nodule measures 2.5 x 1.5 cm, previously 2.6 x 1.6 cm. There is severe emphysema. There is apical scarring. There is mucous plugging in the right lower lobe. There is no axillary or supraclavicular lymphadenopathy. There is no mediastinal lymphadenopathy. Heart size is normal. There are moderate coronary artery calcifications. No pericardial effusion. Aorta is normal in caliber. A right-sided portacatheter is present. The liver is normal without focal lesion. There is no biliary ductal dilation. Gallbladder is normal. Pancreas is normal. Spleen is normal. Adrenal glands are normal. The kidneys are normal. There is no hydronephrosis. Urinary bladder is normal. Bowel is normal in caliber without obstruction or inflammation. No free fluid or air. No abdominal or pelvic lymphadenopathy. 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 No aortic aneurysm. A right acetabular mass is decreased in size measuring 0.7 x 1.7 cm, previously 2.5 x 4.2 cm. There is pathologic fracture of the acetabulum and inferior pubic ramus. IMPRESSION: 1. Stable right upper lobe lung nodule. 2. Decrease in size of right acetabular soft tissue mass with a pathologic fracture of the right acetabulum and inferior pubic ramus. Dictated by: Dictated on workstation # [id number]
--- NOTE | 2022-07-07 15:08 | Diagnostic Imaging Report ---
INDICATION: [id number] lung carcinoma. TECHNIQUE: Patient was administered 26.7 mCi technetium 99m MDP intravenously and whole body imaging was performed after a three-hour delay. COMPARISON: Correlation is made with prior whole body bone scan from 04/03/2022. FINDINGS: There is normal uptake of activity by the axial and appendicular skeleton. There is uptake by the kidneys with excretion into the urinary bladder. Tiny focus of uptake in the right calvarium is again noted. Abnormal uptake at the right acetabulum is again noted. The degree of abnormal uptake appears decreased since study from March 2022. The foci in the intertrochanteric right hip as well as the proximal left femoral shaft remain barely visible with overall uptake significantly decreased. Focus at T11 is not well visualized on today's study. No new abnormal foci are identified. IMPRESSION: The areas of abnormal uptake described on prior bone scan from 04/03/2022 are again visualized, however their overall intensity does appear to be significantly reduced when compared with prior study. No new abnormal foci are detected. Dictated by: Dictated on workstation # [id number]
== END ==
LOC: CARD 10:43
PROVIDERS: ATTEND Internal Medicine Hematology & Oncology
DX: C34.90 Malignant neoplasm of unspecified part of unspecified bronchus or lung (principal); R91.1 Solitary pulmonary nodule; M84.459A Pathological fracture, hip, unspecified, initial encounter for fracture
CPT/HCPCS: 71260; 74177; 78306; A9503

== ENCOUNTER 2022-08-12 13:03 | Outpatient (RCR) | payer MEDICARE, OTHER ==
[~2022-08-12 13:03] MED LIST changes: +CARBOPLATIN IV SCH; -CATHETER FLUSH 10 ML SYR IVP PRN; +D5W IV SCH; +FAMOTIDINE 20MG/2ML IV (PEPCID) IV PRN; +FOSAPREPITANT (CANCER CENTER) 150 MG in NS (IVPB) CANCER CENTER ONLY 150 ML IV SCH; +HEParin (CENTRAL IV FLUSH) 500 UNIT/5 ML SYR IV PRN; -HOLD METFORMIN - RECEIVED CONTRAST 20 ML VIAL IV SCH; -IOHEXOL 350 MG/ML 100 ML (OMNIPAQUE 350) VIAL IV ONE; +NORMAL SALINE IV SCH; +NS (IVPB) 250 ML IV SCH; -NS 100 ML (IVPB) BAG IV ONE; +NS IV 1000 ML (CANCER CTR) IV SCH; +PACLITAXEL IV SCH; +PALONOSETRON HCL 0.25 MG, dexAMETHasone INJECTION 10 MG in NS (IVPB) 50 ML IV SCH; +PEMBROLIZUMAB 200 MG in NS (IVPB) 50 ML IV SCH; +diphenhydrAMINE 25 MG TAB (BENADRYL) PO SCH
[2022-08-12 13:43] LABS: BASOPHILS % (AUTO) 0 % (0-10); EOSINOPHILS # (AUTO) 0.4 10^3/uL (0.0-0.3); EOSINOPHILS % (AUTO) 5 % (0-10); HEMATOCRIT 33 % (35-52); HEMOGLOBIN 11.2 g/dL (11.5-16.0); LYMPHOCYTES # (AUTO) 2.7 10^3/uL (1.0-4.0); LYMPHOCYTES % (AUTO) 28 % (12-44); MEAN CORPUSCULAR HEMOGLOBIN 35 pg (25-34); MEAN CORPUSCULAR HGB CONC 34 g/dL (32-36); MEAN CORPUSCULAR VOLUME 104 fL (80-99); MEAN PLATELET VOLUME 9.2 fL (9.0-12.2); MONOCYTES % (AUTO) 11 % (0-12); NEUTROPHILS # (AUTO) 5.4 10^3/uL (1.8-7.8); NEUTROPHILS % (AUTO) 56 % (42-75); PLATELET COUNT 307 10^3/uL (130-400); WHITE BLOOD COUNT 9.6 10^3/uL (4.3-11.0)
[2022-08-12 13:58] LABS: ALBUMIN 3.7 GM/DL (3.2-4.5); BILIRUBIN,TOTAL 0.2 MG/DL (0.1-1.0); CALCIUM 9.3 MG/DL (8.5-10.1); CREATININE SERUM 0.65 MG/DL (0.60-1.30); POTASSIUM 3.5 MMOL/L (3.6-5.0); TOTAL PROTEIN 6.5 GM/DL (6.4-8.2)
== END 2022-08-18 | disposition home or self-care (01) ==
LOC: ONC 13:03
PROVIDERS: ATTEND Internal Medicine Hematology & Oncology
DX: Z51.11 Encounter for antineoplastic chemotherapy (principal); Z45.2 Encounter for adjustment and management of vascular access device; C34.90 Malignant neoplasm of unspecified part of unspecified bronchus or lung
CPT/HCPCS: 36591; 80053; 85025; 96413

== ENCOUNTER 2022-09-02 10:18 | Outpatient (RCR) | payer MEDICARE, OTHER ==
[~2022-09-02 10:18] MED LIST changes: -CARBOPLATIN IV SCH; -D5W IV SCH; -FAMOTIDINE 20MG/2ML IV (PEPCID) IV PRN; -FOSAPREPITANT (CANCER CENTER) 150 MG in NS (IVPB) CANCER CENTER ONLY 150 ML IV SCH; -NORMAL SALINE IV SCH; -NS IV 1000 ML (CANCER CTR) IV SCH; -PACLITAXEL IV SCH; -PALONOSETRON HCL 0.25 MG, dexAMETHasone INJECTION 10 MG in NS (IVPB) 50 ML IV SCH; -diphenhydrAMINE 25 MG TAB (BENADRYL) PO SCH
[2022-09-02 10:41] LABS: BASOPHILS % (AUTO) 0 % (0-10); EOSINOPHILS # (AUTO) 0.4 10^3/uL (0.0-0.3); EOSINOPHILS % (AUTO) 4 % (0-10); HEMATOCRIT 37 % (35-52); HEMOGLOBIN 12.2 g/dL (11.5-16.0); LYMPHOCYTES # (AUTO) 3.2 10^3/uL (1.0-4.0); LYMPHOCYTES % (AUTO) 30 % (12-44); MEAN CORPUSCULAR HEMOGLOBIN 34 pg (25-34); MEAN CORPUSCULAR HGB CONC 33 g/dL (32-36); MEAN CORPUSCULAR VOLUME 102 fL (80-99); MEAN PLATELET VOLUME 8.9 fL (9.0-12.2); MONOCYTES # (AUTO) 0.9 10^3/uL (0.0-1.0); MONOCYTES % (AUTO) 9 % (0-12); NEUTROPHILS # (AUTO) 6.1 10^3/uL (1.8-7.8); NEUTROPHILS % (AUTO) 57 % (42-75); PLATELET COUNT 292 10^3/uL (130-400); WHITE BLOOD COUNT 10.7 10^3/uL (4.3-11.0)
[2022-09-02 11:05] LABS: ALBUMIN 3.9 GM/DL (3.2-4.5); BILIRUBIN,TOTAL 0.2 MG/DL (0.1-1.0); CALCIUM 9.7 MG/DL (8.5-10.1); CREATININE SERUM 0.63 MG/DL (0.60-1.30); POTASSIUM 3.6 MMOL/L (3.6-5.0); TOTAL PROTEIN 6.7 GM/DL (6.4-8.2)
== END 2022-09-18 | disposition home or self-care (01) ==
LOC: ONC 10:18
PROVIDERS: ATTEND Internal Medicine Hematology & Oncology
DX: Z51.11 Encounter for antineoplastic chemotherapy (principal); Z45.2 Encounter for adjustment and management of vascular access device; C34.90 Malignant neoplasm of unspecified part of unspecified bronchus or lung
CPT/HCPCS: 36591; 80053; 85025; 96413

== ENCOUNTER 2022-10-14 10:04 | Outpatient (RCR) | payer MEDICARE, OTHER ==
[2022-09-23 10:39] LABS: BASOPHILS % (AUTO) 0 % (0-10); EOSINOPHILS # (AUTO) 0.6 10^3/uL (0.0-0.3); EOSINOPHILS % (AUTO) 6 % (0-10); HEMATOCRIT 37 % (35-52); HEMOGLOBIN 12.6 g/dL (11.5-16.0); LYMPHOCYTES % (AUTO) 28 % (12-44); MEAN CORPUSCULAR HEMOGLOBIN 34 pg (25-34); MEAN CORPUSCULAR HGB CONC 34 g/dL (32-36); MEAN CORPUSCULAR VOLUME 100 fL (80-99); MEAN PLATELET VOLUME 9.2 fL (9.0-12.2); MONOCYTES % (AUTO) 9 % (0-12); NEUTROPHILS # (AUTO) 6.2 10^3/uL (1.8-7.8); NEUTROPHILS % (AUTO) 57 % (42-75); PLATELET COUNT 259 10^3/uL (130-400); WHITE BLOOD COUNT 10.9 10^3/uL (4.3-11.0)
[2022-09-23 11:06] LABS: BILIRUBIN,TOTAL 0.3 MG/DL (0.1-1.0); CALCIUM 9.4 MG/DL (8.5-10.1); CREATININE SERUM 0.66 MG/DL (0.60-1.30); POTASSIUM 3.7 MMOL/L (3.6-5.0); TOTAL PROTEIN 6.7 GM/DL (6.4-8.2)
[2022-10-14 10:31] LABS: BASOPHILS % (AUTO) 0 % (0-10); EOSINOPHILS # (AUTO) 0.3 10^3/uL (0.0-0.3); EOSINOPHILS % (AUTO) 3 % (0-10); HEMATOCRIT 37 % (35-52); HEMOGLOBIN 12.6 g/dL (11.5-16.0); LYMPHOCYTES # (AUTO) 3.1 10^3/uL (1.0-4.0); LYMPHOCYTES % (AUTO) 29 % (12-44); MEAN CORPUSCULAR HEMOGLOBIN 34 pg (25-34); MEAN CORPUSCULAR HGB CONC 34 g/dL (32-36); MEAN CORPUSCULAR VOLUME 98 fL (80-99); MEAN PLATELET VOLUME 8.9 fL (9.0-12.2); MONOCYTES % (AUTO) 10 % (0-12); NEUTROPHILS # (AUTO) 6.1 10^3/uL (1.8-7.8); NEUTROPHILS % (AUTO) 58 % (42-75); PLATELET COUNT 270 10^3/uL (130-400); WHITE BLOOD COUNT 10.5 10^3/uL (4.3-11.0)
[2022-10-14 10:52] LABS: ALBUMIN 4.1 GM/DL (3.2-4.5); BILIRUBIN,TOTAL 0.2 MG/DL (0.1-1.0); CALCIUM 9.5 MG/DL (8.5-10.1); CREATININE SERUM 0.68 MG/DL (0.60-1.30); POTASSIUM 3.6 MMOL/L (3.6-5.0); TOTAL PROTEIN 6.9 GM/DL (6.4-8.2)
== END 2022-10-18 | disposition home or self-care (01) ==
LOC: ONC 10:04
PROVIDERS: ATTEND Internal Medicine Hematology & Oncology
DX: Z51.11 Encounter for antineoplastic chemotherapy (principal); Z45.2 Encounter for adjustment and management of vascular access device; C34.90 Malignant neoplasm of unspecified part of unspecified bronchus or lung
CPT/HCPCS: 36591; 80053; 85025; 96413

== ENCOUNTER → 2022-10-26 | Outpatient (CLI) | payer MEDICARE ==
[~2022-10-26] MED LIST changes: -HEParin (CENTRAL IV FLUSH) 500 UNIT/5 ML SYR IV PRN; +HOLD METFORMIN - RECEIVED CONTRAST 20 ML VIAL IV SCH; +IOHEXOL 350 MG/ML 100 ML (OMNIPAQUE 350) VIAL IV ONE; -NS (IVPB) 250 ML IV SCH; +NS 100 ML (IVPB) BAG IV ONE; -PEMBROLIZUMAB 200 MG in NS (IVPB) 50 ML IV SCH
--- NOTE | 2022-10-26 11:27 | Diagnostic Imaging Report ---
EXAMINATION: CT chest, abdomen and pelvis with intravenous contrast. TECHNIQUE: Multiple contiguous axial images were obtained through the chest, abdomen and pelvis after the uneventful administration of intravenous contrast. All CT scans use one or more of the following dose optimizing techniques: automated exposure control, MA and/or KvP adjustment based on patient size and exam type or iterative reconstruction. HISTORY: Lung cancer COMPARISON: 07/07/2022 FINDINGS: There is no edema or pneumonia. No pleural effusion. No pneumothorax. The right upper lobe nodule measures 2.5 x 1.6 cm, previously 2.5 x 1.6 cm. Lungs are severely emphysematous. No new nodule is seen. There is scarring in the apices. There is no axillary or supraclavicular lymphadenopathy. There is no mediastinal lymphadenopathy. A right internal jugular port catheter is present. There is a small amount of catheter associated thrombus of the site of insertion into the internal jugular vein. There is a second small amount of thrombus in the mid superior vena cava associated with the catheter. Heart size is normal. There are mild coronary artery calcifications. No pericardial effusion. Aorta is normal in caliber. The liver is normal without focal lesion. There is no biliary ductal dilation. Gallbladder is normal. Pancreas is normal. Spleen is normal. Adrenal glands are normal. The kidneys are normal. There is no hydronephrosis. Urinary bladder is normal. Bowel is normal in caliber without obstruction or inflammation. No free fluid or air. No abdominal or pelvic lymphadenopathy. 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 Lytic lesion in the right acetabulum is unchanged from prior exam. Pathologic fracture of the right acetabulum extending to the right inferior pubic ramus is unchanged. No new osseous lesion is seen. IMPRESSION: 1. Unchanged right apical nodule. 2. Unchanged lytic lesion right acetabulum with a pathologic fracture extending into the right inferior pubic ramus. 3. Small amount of catheter associated thrombus at the insertion site of the right internal jugular vein in mid superior vena cava. Dictated by: Dictated on workstation # [id number]
--- NOTE | 2022-10-26 17:59 | Diagnostic Imaging Report ---
History of lung cancer COMPARISON with whole-body bone scan 07/07/2022 The patient received an intravenous dose 27.5 mCi technetium 99 MDP via the left antecubital and after 3 hours, whole-body planar imaging was performed. FINDINGS: Mild right infraorbital or maxillary uptake is again noted, unchanged. Some very minimal degenerative uptake about the mildly scoliotic thoracolumbar spine unchanged. Some degenerative uptake about the knees and shoulders unchanged. No suspicious sternal, manubrial or rib uptake. Soft tissue uptake and excretion of radiopharmacy by urinary tracts, stable. IMPRESSION: Right facial uptake further decreased. No findings felt particularly suggestive of scintigraphic evidence of bony metastatic disease or adverse development. Dictated by: Dictated on workstation # [id number]
== END ==
LOC: CARD 10:27
PROVIDERS: ATTEND Internal Medicine Hematology & Oncology
DX: C34.91 Malignant neoplasm of unspecified part of right bronchus or lung (principal)
CPT/HCPCS: 71260; 74177; 78306; A9503

== ENCOUNTER 2022-11-04 10:37 | Outpatient (RCR) | payer MEDICARE, OTHER ==
[~2022-11-04 10:37] MED LIST changes: +HEParin (CENTRAL IV FLUSH) 500 UNIT/5 ML SYR IV PRN; -HOLD METFORMIN - RECEIVED CONTRAST 20 ML VIAL IV SCH; -IOHEXOL 350 MG/ML 100 ML (OMNIPAQUE 350) VIAL IV ONE; +NS (IVPB) 250 ML IV SCH; -NS 100 ML (IVPB) BAG IV ONE; +PEMBROLIZUMAB 200 MG in NS (IVPB) 50 ML IV SCH
[2022-11-04 10:52] LABS: BASOPHILS # (AUTO) 0.1 10^3/uL (0.0-0.1); BASOPHILS % (AUTO) 1 % (0-10); EOSINOPHILS # (AUTO) 0.3 10^3/uL (0.0-0.3); EOSINOPHILS % (AUTO) 3 % (0-10); HEMATOCRIT 37 % (35-52); HEMOGLOBIN 12.4 g/dL (11.5-16.0); LYMPHOCYTES % (AUTO) 29 % (12-44); MEAN CORPUSCULAR HEMOGLOBIN 33 pg (25-34); MEAN CORPUSCULAR HGB CONC 34 g/dL (32-36); MEAN CORPUSCULAR VOLUME 98 fL (80-99); MEAN PLATELET VOLUME 8.9 fL (9.0-12.2); MONOCYTES % (AUTO) 10 % (0-12); NEUTROPHILS % (AUTO) 57 % (42-75); PLATELET COUNT 300 10^3/uL (130-400); WHITE BLOOD COUNT 10.5 10^3/uL (4.3-11.0)
[2022-11-04 11:11] LABS: BILIRUBIN,TOTAL 0.2 MG/DL (0.1-1.0); CALCIUM 9.1 MG/DL (8.5-10.1); CREATININE SERUM 0.68 MG/DL (0.60-1.30); POTASSIUM 3.8 MMOL/L (3.6-5.0); TOTAL PROTEIN 6.6 GM/DL (6.4-8.2)
== END 2022-11-18 | disposition home or self-care (01) ==
LOC: ONC 10:37
PROVIDERS: ATTEND Internal Medicine Hematology & Oncology
DX: Z51.11 Encounter for antineoplastic chemotherapy (principal); Z45.2 Encounter for adjustment and management of vascular access device; C34.91 Malignant neoplasm of unspecified part of right bronchus or lung
CPT/HCPCS: 36591; 80053; 85025; 96413

== ENCOUNTER 2022-12-16 07:37 | Outpatient (RCR) | payer MEDICARE, OTHER ==
[2022-11-25 11:00] VITALS: BP 121/67
[2022-11-25 11:00] LABS: BASOPHILS # (AUTO) 0.1 10^3/uL (0.0-0.1); BASOPHILS % (AUTO) 1 % (0-10); EOSINOPHILS # (AUTO) 0.5 10^3/uL (0.0-0.3); EOSINOPHILS % (AUTO) 4 % (0-10); HEMATOCRIT 37 % (35-52); HEMOGLOBIN 12.2 g/dL (11.5-16.0); LYMPHOCYTES # (AUTO) 2.8 10^3/uL (1.0-4.0); LYMPHOCYTES % (AUTO) 25 % (12-44); MEAN CORPUSCULAR HEMOGLOBIN 32 pg (25-34); MEAN CORPUSCULAR HGB CONC 33 g/dL (32-36); MEAN CORPUSCULAR VOLUME 98 fL (80-99); MEAN PLATELET VOLUME 9.3 fL (9.0-12.2); MONOCYTES # (AUTO) 0.9 10^3/uL (0.0-1.0); MONOCYTES % (AUTO) 8 % (0-12); NEUTROPHILS # (AUTO) 7.1 10^3/uL (1.8-7.8); NEUTROPHILS % (AUTO) 62 % (42-75); PLATELET COUNT 277 10^3/uL (130-400); WHITE BLOOD COUNT 11.4 10^3/uL (4.3-11.0)
[2022-11-25] MEDS: PEMBROLIZUMAB 200 MG in NS (IVPB) 50 ML IV SCH (11:08)
[2022-11-25 11:17] LABS: ALBUMIN 3.9 GM/DL (3.2-4.5); BILIRUBIN,TOTAL 0.2 MG/DL (0.1-1.0); CALCIUM 9.2 MG/DL (8.5-10.1); CREATININE SERUM 0.66 MG/DL (0.60-1.30); POTASSIUM 3.8 MMOL/L (3.6-5.0); TOTAL PROTEIN 6.6 GM/DL (6.4-8.2)
[~2022-12-16] VITALS: Ht 154.9 cm; Wt 35.6 kg
[~2022-12-16 07:37] MED LIST changes: -PEMBROLIZUMAB 200 MG in NS (IVPB) 50 ML IV SCH
[2022-12-16 10:45] VITALS: BP 113/69
[2022-12-16 10:47] LABS: BASOPHILS # (AUTO) 0.1 10^3/uL (0.0-0.1); BASOPHILS % (AUTO) 0 % (0-10); EOSINOPHILS # (AUTO) 0.5 10^3/uL (0.0-0.3); EOSINOPHILS % (AUTO) 4 % (0-10); HEMATOCRIT 39 % (35-52); HEMOGLOBIN 12.7 g/dL (11.5-16.0); LYMPHOCYTES % (AUTO) 27 % (12-44); MEAN CORPUSCULAR HEMOGLOBIN 33 pg (25-34); MEAN CORPUSCULAR HGB CONC 33 g/dL (32-36); MEAN CORPUSCULAR VOLUME 99 fL (80-99); MONOCYTES % (AUTO) 9 % (0-12); NEUTROPHILS # (AUTO) 6.7 10^3/uL (1.8-7.8); NEUTROPHILS % (AUTO) 59 % (42-75); PLATELET COUNT 284 10^3/uL (130-400); WHITE BLOOD COUNT 11.3 10^3/uL (4.3-11.0)
[2022-12-16 11:01] LABS: ALBUMIN 3.9 GM/DL (3.2-4.5); POTASSIUM 3.5 MMOL/L (3.6-5.0)
[2022-12-16 11:02] LABS: CALCIUM 9.1 MG/DL (8.5-10.1)
[2022-12-16 11:03] LABS: TOTAL PROTEIN 6.3 GM/DL (6.4-8.2)
[2022-12-16 11:05] LABS: BILIRUBIN,TOTAL 0.3 MG/DL (0.1-1.0)
[2022-12-16 11:07] LABS: CREATININE SERUM 0.7 MG/DL (0.60-1.30)
[2022-12-16] MEDS: PEMBROLIZUMAB 200 MG in NS (IVPB) 50 ML IV SCH (11:09)
== END 2022-12-18 | disposition home or self-care (01) ==
LOC: ONC 07:37
PROVIDERS: ATTEND Internal Medicine Hematology & Oncology
DX: Z51.11 Encounter for antineoplastic chemotherapy (principal); Z45.2 Encounter for adjustment and management of vascular access device; C34.91 Malignant neoplasm of unspecified part of right bronchus or lung
CPT/HCPCS: 36591; 80053; 85025; 96413

== ENCOUNTER 2023-01-06 10:23 | Outpatient (RCR) | payer MEDICARE, OTHER ==
[~2023-01-06] VITALS: Ht 154.9 cm; Wt 36.4 kg
[~2023-01-06 10:23] MED LIST changes: +NS (IVPB) 250 ML 250 ML IV SCH; -NS (IVPB) 250 ML IV SCH; +PEMBROLIZUMAB 200 MG in NS (IVPB) 50 ML 50 ML IV SCH
[2023-01-06 10:49] LABS: BASOPHILS # (AUTO) 0.1 10^3/uL (0.0-0.1); BASOPHILS % (AUTO) 1 % (0-10); EOSINOPHILS # (AUTO) 0.4 10^3/uL (0.0-0.3); EOSINOPHILS % (AUTO) 4 % (0-10); HEMATOCRIT 39 % (35-52); HEMOGLOBIN 12.9 g/dL (11.5-16.0); LYMPHOCYTES # (AUTO) 3.1 10^3/uL (1.0-4.0); LYMPHOCYTES % (AUTO) 27 % (12-44); MEAN CORPUSCULAR HEMOGLOBIN 32 pg (25-34); MEAN CORPUSCULAR HGB CONC 33 g/dL (32-36); MEAN CORPUSCULAR VOLUME 98 fL (80-99); MEAN PLATELET VOLUME 8.6 fL (9.0-12.2); MONOCYTES # (AUTO) 1.2 10^3/uL (0.0-1.0); MONOCYTES % (AUTO) 10 % (0-12); NEUTROPHILS # (AUTO) 6.7 10^3/uL (1.8-7.8); NEUTROPHILS % (AUTO) 58 % (42-75); PLATELET COUNT 328 10^3/uL (130-400); WHITE BLOOD COUNT 11.5 10^3/uL (4.3-11.0)
[2023-01-06 11:08] LABS: ALBUMIN 3.7 GM/DL (3.2-4.5); BILIRUBIN,TOTAL 0.2 MG/DL (0.1-1.0); CALCIUM 9.1 MG/DL (8.5-10.1); CREATININE SERUM 0.65 MG/DL (0.60-1.30); TOTAL PROTEIN 6.6 GM/DL (6.4-8.2)
[2023-01-06 11:31] VITALS: BP 121/88
== END 2023-01-18 | disposition home or self-care (01) ==
LOC: ONC 10:23
PROVIDERS: ATTEND Internal Medicine Hematology & Oncology
DX: Z51.11 Encounter for antineoplastic chemotherapy (principal); Z45.2 Encounter for adjustment and management of vascular access device; C34.91 Malignant neoplasm of unspecified part of right bronchus or lung
CPT/HCPCS: 36591; 80053; 85025; 96413

== ENCOUNTER 2023-02-17 07:49 | Outpatient (RCR) | payer MEDICARE, OTHER ==
[2023-01-27 10:26] VITALS: BP 103/71
[2023-01-27 10:33] LABS: BASOPHILS # (AUTO) 0.1 10^3/uL (0.0-0.1); BASOPHILS % (AUTO) 1 % (0-10); EOSINOPHILS # (AUTO) 0.6 10^3/uL (0.0-0.3); EOSINOPHILS % (AUTO) 5 % (0-10); HEMATOCRIT 41 % (35-52); HEMOGLOBIN 13.3 g/dL (11.5-16.0); LYMPHOCYTES # (AUTO) 3.1 10^3/uL (1.0-4.0); LYMPHOCYTES % (AUTO) 26 % (12-44); MEAN CORPUSCULAR HEMOGLOBIN 33 pg (25-34); MEAN CORPUSCULAR HGB CONC 33 g/dL (32-36); MEAN CORPUSCULAR VOLUME 100 fL (80-99); MEAN PLATELET VOLUME 9.1 fL (9.0-12.2); MONOCYTES # (AUTO) 1.1 10^3/uL (0.0-1.0); MONOCYTES % (AUTO) 9 % (0-12); NEUTROPHILS # (AUTO) 6.8 10^3/uL (1.8-7.8); NEUTROPHILS % (AUTO) 58 % (42-75); PLATELET COUNT 355 10^3/uL (130-400); WHITE BLOOD COUNT 11.7 10^3/uL (4.3-11.0)
[2023-01-27 10:49] LABS: ALBUMIN 3.8 GM/DL (3.2-4.5); BILIRUBIN,TOTAL 0.2 MG/DL (0.1-1.0); CALCIUM 8.9 MG/DL (8.5-10.1); CREATININE SERUM 0.69 MG/DL (0.60-1.30); POTASSIUM 3.8 MMOL/L (3.6-5.0); TOTAL PROTEIN 6.4 GM/DL (6.4-8.2)
[2023-01-27] MEDS: NS (IVPB) 250 ML 250 ML IV SCH (10:55)
[2023-01-27] MEDS: PEMBROLIZUMAB 200 MG in NS (IVPB) 50 ML 50 ML IV SCH (11:05)
[~2023-02-17] VITALS: Ht 154.9 cm; Wt 38.0 kg
[~2023-02-17 07:49] MED LIST changes: -NS (IVPB) 250 ML 250 ML IV SCH; -PEMBROLIZUMAB 200 MG in NS (IVPB) 50 ML 50 ML IV SCH
[2023-02-17 11:16] LABS: BASOPHILS # (AUTO) 0.1 10^3/uL (0.0-0.1); BASOPHILS % (AUTO) 1 % (0-10); EOSINOPHILS # (AUTO) 0.7 10^3/uL (0.0-0.3); EOSINOPHILS % (AUTO) 6 % (0-10); HEMATOCRIT 40 % (35-52); LYMPHOCYTES # (AUTO) 3.1 10^3/uL (1.0-4.0); LYMPHOCYTES % (AUTO) 26 % (12-44); MEAN CORPUSCULAR HEMOGLOBIN 32 pg (25-34); MEAN CORPUSCULAR HGB CONC 33 g/dL (32-36); MEAN CORPUSCULAR VOLUME 99 fL (80-99); MONOCYTES # (AUTO) 1.1 10^3/uL (0.0-1.0); MONOCYTES % (AUTO) 10 % (0-12); NEUTROPHILS # (AUTO) 6.7 10^3/uL (1.8-7.8); NEUTROPHILS % (AUTO) 57 % (42-75); PLATELET COUNT 342 10^3/uL (130-400); WHITE BLOOD COUNT 11.7 10^3/uL (4.3-11.0)
[2023-02-17 11:27] VITALS: BP 121/71
[2023-02-17 11:34] LABS: ALBUMIN 3.6 GM/DL (3.2-4.5); BILIRUBIN,TOTAL 0.2 MG/DL (0.1-1.0); CALCIUM 8.5 MG/DL (8.5-10.1); CREATININE SERUM 0.72 MG/DL (0.60-1.30); POTASSIUM 3.9 MMOL/L (3.6-5.0)
[2023-02-17] MEDS: NS (IVPB) 250 ML 250 ML IV SCH (11:45)
[2023-02-17] MEDS: PEMBROLIZUMAB 200 MG in NS (IVPB) 50 ML 50 ML IV SCH (11:46)
== END 2023-02-18 | disposition home or self-care (01) ==
LOC: ONC 07:49
PROVIDERS: ATTEND Internal Medicine Hematology & Oncology
DX: Z51.11 Encounter for antineoplastic chemotherapy (principal); Z45.2 Encounter for adjustment and management of vascular access device; C34.91 Malignant neoplasm of unspecified part of right bronchus or lung
CPT/HCPCS: 80053; 85025; 96413; G0463; 36591; 84443; 99214

== ENCOUNTER 2023-03-31 09:33 | Outpatient (RCR) | payer MEDICARE, OTHER ==
[~2023-03-31] VITALS: Ht 154.9 cm; Wt 38.1 kg
[~2023-03-31 09:33] MED LIST changes: +NS (IVPB) 250 ML 250 ML IV SCH; +PEMBROLIZUMAB 200 MG in NS (IVPB) 50 ML 50 ML IV SCH
[2023-03-31 10:28] LABS: BASOPHILS # (AUTO) 0.1 10^3/uL (0.0-0.1); BASOPHILS % (AUTO) 1 % (0-10); EOSINOPHILS # (AUTO) 0.8 10^3/uL (0.0-0.3); EOSINOPHILS % (AUTO) 8 % (0-10); HEMATOCRIT 41 % (35-52); HEMOGLOBIN 13.4 g/dL (11.5-16.0); LYMPHOCYTES # (AUTO) 2.9 10^3/uL (1.0-4.0); LYMPHOCYTES % (AUTO) 29 % (12-44); MEAN CORPUSCULAR HEMOGLOBIN 32 pg (25-34); MEAN CORPUSCULAR HGB CONC 33 g/dL (32-36); MEAN CORPUSCULAR VOLUME 97 fL (80-99); MEAN PLATELET VOLUME 8.9 fL (9.0-12.2); MONOCYTES # (AUTO) 0.9 10^3/uL (0.0-1.0); MONOCYTES % (AUTO) 9 % (0-12); NEUTROPHILS # (AUTO) 5.4 10^3/uL (1.8-7.8); NEUTROPHILS % (AUTO) 53 % (42-75); PLATELET COUNT 352 10^3/uL (130-400); WHITE BLOOD COUNT 10.2 10^3/uL (4.3-11.0)
[2023-03-31 10:44] LABS: ALBUMIN 3.6 GM/DL (3.2-4.5); BILIRUBIN,TOTAL 0.3 MG/DL (0.1-1.0); CALCIUM 8.8 MG/DL (8.5-10.1); CREATININE SERUM 0.67 MG/DL (0.60-1.30); POTASSIUM 3.8 MMOL/L (3.6-5.0); TOTAL PROTEIN 6.4 GM/DL (6.4-8.2)
[2023-03-31 11:00] VITALS: BP 95/70
== END 2023-04-20 | disposition home or self-care (01) ==
LOC: ONC 09:33
PROVIDERS: ATTEND Internal Medicine Hematology & Oncology
DX: Z51.11 Encounter for antineoplastic chemotherapy (principal); Z45.2 Encounter for adjustment and management of vascular access device; C34.91 Malignant neoplasm of unspecified part of right bronchus or lung
CPT/HCPCS: 80053; 85025; 96413; G0463; 36591; 99214

== ENCOUNTER → 2023-05-03 | Outpatient (CLI) | payer MEDICARE ==
[~2023-05-03] MED LIST changes: -HEParin (CENTRAL IV FLUSH) 500 UNIT/5 ML SYR IV PRN; -NS (IVPB) 250 ML 250 ML IV SCH; -PEMBROLIZUMAB 200 MG in NS (IVPB) 50 ML 50 ML IV SCH
[2023-05-03] MEDS: NS 100 ML (IVPB) BAG IV ONE (11:33)
[2023-05-03] MEDS: IOHEXOL 350 MG/ML 100 ML (OMNIPAQUE 350) VIAL IV ONE (11:33)
--- NOTE | 2023-05-03 17:23 | Diagnostic Imaging Report ---
PROCEDURE: CT chest, abdomen, and pelvis with contrast. TECHNIQUE: Multiple contiguous axial images were obtained through the chest, abdomen, and pelvis after the administration of intravenous contrast. Auto Exposure Controls were utilized during the CT exam to meet ALARA standards for radiation dose reduction. INDICATION: Lung cancer follow-up. COMPARISON: 01/11/2023 and 07/07/2022. FINDINGS: No significant adenopathy within the chest. Right-sided Port-A-Cath is again identified, appearing similar to the prior examination. No aneurysmal dilatation of the thoracic aorta. The heart is within normal limits in size. No pericardial effusion. No pleural effusion. Moderate background emphysematous changes. Biapical pleural-parenchymal scarring. 2.1 x 1.5 cm nodular density within the posterior right upper lobe is again identified, appearing stable to slightly less prominent than the prior examination. No new pulmonary nodule or opacity. No new acute osseous abnormality within the chest with mild scattered osseous degenerative changes present. The liver, spleen, and adrenal glands appear stable from the prior examination. The pancreas is unremarkable. The kidneys are unremarkable. Advanced vascular calcifications with ectasia without aneurysmal dilatation of the abdominal aorta. This appears similar to the prior examination. The gallbladder is unremarkable. The urinary bladder is unremarkable. The uterus is unremarkable for age. No abnormal adnexal mass lesion. The appendix is unremarkable. No bowel obstruction. No pneumatosis. 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 Mixed lucency and sclerosis within the posterior aspect of the right acetabulum is again identified and stable. This is associated with stable chronic nondisplaced fracturing. No new acute osseous abnormality with mild scattered osseous degenerative changes. IMPRESSION: No evidence of new metastatic disease or malignancy. Stable 2.1 cm nodular density within the right upper lobe, unchanged to slightly less prominent than the prior exam. 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 This could be further evaluated with a CTA of the abdomen and pelvis as clinically indicated. Moderate background emphysematous changes within the lungs. Dictated by: Dictated on workstation # [id number]
== END ==
LOC: RAD 11:23
PROVIDERS: ATTEND Internal Medicine Hematology & Oncology
DX: C34.90 Malignant neoplasm of unspecified part of unspecified bronchus or lung (principal); R91.8 Other nonspecific abnormal finding of lung field; J43.9 Emphysema, unspecified
CPT/HCPCS: 71260; 74177

== ENCOUNTER 2023-05-12 07:48 | Outpatient (RCR) | payer MEDICARE, OTHER ==
[2023-04-21 10:27] VITALS: BP 112/66
[2023-04-21 10:32] LABS: BASOPHILS # (AUTO) 0.1 10^3/uL (0.0-0.1); BASOPHILS % (AUTO) 0 % (0-10); EOSINOPHILS % (AUTO) 8 % (0-10); HEMATOCRIT 39 % (35-52); HEMOGLOBIN 12.7 g/dL (11.5-16.0); LYMPHOCYTES # (AUTO) 3.3 10^3/uL (1.0-4.0); LYMPHOCYTES % (AUTO) 29 % (12-44); MEAN CORPUSCULAR HEMOGLOBIN 32 pg (25-34); MEAN CORPUSCULAR HGB CONC 33 g/dL (32-36); MEAN CORPUSCULAR VOLUME 98 fL (80-99); MEAN PLATELET VOLUME 9.1 fL (9.0-12.2); MONOCYTES # (AUTO) 0.9 10^3/uL (0.0-1.0); MONOCYTES % (AUTO) 7 % (0-12); NEUTROPHILS # (AUTO) 6.2 10^3/uL (1.8-7.8); NEUTROPHILS % (AUTO) 55 % (42-75); PLATELET COUNT 311 10^3/uL (130-400); WHITE BLOOD COUNT 11.4 10^3/uL (4.3-11.0)
[2023-04-21] MEDS: PEMBROLIZUMAB 200 MG in NS (IVPB) 50 ML 50 ML IV SCH (10:44)
[2023-04-21] MEDS: NS (IVPB) 250 ML 250 ML IV SCH (10:44)
[2023-04-21 11:13] LABS: ALBUMIN 3.5 GM/DL (3.2-4.5); BILIRUBIN,TOTAL 0.2 MG/DL (0.1-1.0); CALCIUM 8.6 MG/DL (8.5-10.1); CREATININE SERUM 0.71 MG/DL (0.60-1.30); POTASSIUM 3.4 MMOL/L (3.6-5.0)
[~2023-05-12] VITALS: Ht 154.9 cm; Wt 39.0 kg
[~2023-05-12 07:48] MED LIST changes: +HEParin (CENTRAL IV FLUSH) 500 UNIT/5 ML SYR IV PRN
[2023-05-12 09:22] LABS: BASOPHILS # (AUTO) 0.1 10^3/uL (0.0-0.1); BASOPHILS % (AUTO) 1 % (0-10); EOSINOPHILS # (AUTO) 0.4 10^3/uL (0.0-0.3); EOSINOPHILS % (AUTO) 4 % (0-10); HEMATOCRIT 41 % (35-52); HEMOGLOBIN 13.2 g/dL (11.5-16.0); LYMPHOCYTES # (AUTO) 3.7 10^3/uL (1.0-4.0); LYMPHOCYTES % (AUTO) 32 % (12-44); MEAN CORPUSCULAR HEMOGLOBIN 32 pg (25-34); MEAN CORPUSCULAR HGB CONC 32 g/dL (32-36); MEAN CORPUSCULAR VOLUME 99 fL (80-99); MEAN PLATELET VOLUME 9.1 fL (9.0-12.2); MONOCYTES # (AUTO) 0.9 10^3/uL (0.0-1.0); MONOCYTES % (AUTO) 8 % (0-12); NEUTROPHILS # (AUTO) 6.5 10^3/uL (1.8-7.8); NEUTROPHILS % (AUTO) 55 % (42-75); PLATELET COUNT 314 10^3/uL (130-400); WHITE BLOOD COUNT 11.7 10^3/uL (4.3-11.0)
[2023-05-12] MEDS: NS (IVPB) 250 ML 250 ML IV SCH (09:42)
[2023-05-12] MEDS: PEMBROLIZUMAB 200 MG in NS (IVPB) 50 ML 50 ML IV SCH (09:42)
[2023-05-12 09:43] LABS: ALBUMIN 3.4 GM/DL (3.2-4.5); BILIRUBIN,TOTAL 0.3 MG/DL (0.1-1.0); CALCIUM 8.6 MG/DL (8.5-10.1); CREATININE SERUM 0.73 MG/DL (0.60-1.30); POTASSIUM 3.7 MMOL/L (3.6-5.0); TOTAL PROTEIN 6.1 GM/DL (6.4-8.2)
[2023-05-12 09:46] VITALS: BP 121/80
== END 2023-05-20 | disposition home or self-care (01) ==
LOC: ONC 07:48
PROVIDERS: ATTEND Internal Medicine Hematology & Oncology
DX: Z51.11 Encounter for antineoplastic chemotherapy (principal); Z45.2 Encounter for adjustment and management of vascular access device; C34.91 Malignant neoplasm of unspecified part of right bronchus or lung
CPT/HCPCS: 80053; 85025; 96413; G0463; 36591; 99214